=== PATIENT | female | born 1970 | race Two or more races ===

== ENCOUNTER 2018-05-27 22:08 | Emergency (ER) | payer SELFPAY ==
[~2018-05-27] VITALS: Ht 170.2 cm; Wt 72.6 kg
[2018-05-27 22:12] VITALS: BP 154/69
--- NOTE | 2018-05-27 23:48 | PHYS DOC ---
Past Medical History Past Medical History: No Pertinent History Past Surgical History: No Surgical History Alcohol Use: None Drug Use: None Adult General Chief Complaint Chief Complaint: MECHANICAL FALL HPI HPI Patient is a 47 year old female who presents with pain in her right hip and buttock after she slipped on the ice and fell just prior to arrival. The patient was in the driveway when the incident occurred. She presented directly to the emergency department. She did not try any [id number] pain medication. Activity makes the pain worse. She states nothing relieves the pain. Review of Systems Review of Systems Constitutional: Denies fever or chills [] Respiratory: Denies cough or shortness of breath [] Cardiovascular: No additional information not addressed in HPI [] GI: Denies abdominal pain, nausea, vomiting, bloody stools or diarrhea [] : Denies dysuria or hematuria [] Musculoskeletal: See history of present illness Integument: Denies rash or skin lesions [] Neurologic: Denies headache, focal weakness or sensory changes [] Endocrine: Denies polyuria or polydipsia [] All other systems were reviewed and found to be within normal limits, except as documented in this note. Current Medications Current Medications Current Medications Medications (Trade) Dose Ordered Sig/Constantine Start Time Stop Time Status Last Admin Dose Admin Ibuprofen (Motrin) 800 mg 1X ONCE 05/28/18 00:00 05/28/18 00:01 DC 05/27/18 23:54 800 MG Allergies Allergies Allergies Coded Allergies Type Severity Reaction Last Updated Verified No Known Drug Allergies 05/27/18 No Physical Exam Physical Exam Constitutional: Well developed, well nourished, no acute distress, non-toxic appearance. [] Cardiovascular:Heart rate regular rhythm, no murmur [] Lungs & Thorax: Bilateral breath sounds clear to auscultation [] Abdomen: Bowel sounds normal, soft, no tenderness, no masses, no pulsatile masses. [] Skin: Warm, dry, no erythema, no rash. [] Back: No spinal tenderness, tenderness to right hip with palpation, no CVA tenderness. [] Extremities: No tenderness, no cyanosis, no clubbing, ROM intact, no edema. [] Neurologic: Alert and oriented X 3, normal motor function, normal sensory function, no focal deficits noted. [] Psychologic: Affect normal, judgement normal, mood normal. [] Current Patient Data Vital Signs Vital Signs Date Time Temp Pulse Resp B/P (MAP) Pulse Ox O2 Delivery O2 Flow Rate FiO2 05/27/18 22:12 97.6 74 18 154/69 (97) 100 Room Air 97.6 EKG EKG [] Radiology/Procedures Radiology/Procedures []PATIENT: CORY HALLUNT: [id number]#: [id number] : 1970 LOCATION: ER AGE: 47 SEX: F EXAM STATUS: REG ER ORD. PHYSICIAN: LEFTY BOLTON APRN REASON: fell just prior to arrival on ice PROCEDURE: HIP RIGHT 2V WITH PELVIS Right hip with one view pelvis. HISTORY: Fell Single view was taken of the pelvis. There is moderate stool in the colon. Pelvis is intact without acute fracture. AP and lateral views of the right hip show no acute fracture IMPRESSION: 1. No fracture noted in the pelvis or right hip. Electronically signed by: Kyle Tomlinson MD (05/27/2018 11:49 PM) [facility] DICTATED and SIGNED BY: KYLE TOMLINSON MD DATE: 05/27/18 2348 Course & Med Decision Making Course & Med Decision Making Pertinent Labs and Imaging studies reviewed. (See chart for details) [] Dragon Disclaimer Dragon Disclaimer This electronic medical record was generated, in whole or in part, using a voice recognition dictation system. Departure Departure Impression: Primary Impression: Contusion Disposition: HOME, SELF-CARE Condition: STABLE Referrals: NO PCP (PCP) Patient Instructions: Contusion Additional Instructions: You may take ibuprofen or Tylenol for pain. Use ice packs or a heating pad or comfort. Follow-up with your primary care provider in 3 days if not improving for possible referral to orthopedics. LEFTY BOLTON APRN May 27, 2018 23:48
--- NOTE | 2018-05-27 23:53 | RAD ---
Right hip with one view pelvis. HISTORY: Fell Single view was taken of the pelvis. There is moderate stool in the colon. Pelvis is intact without acute fracture. AP and lateral views of the right hip show no acute fracture IMPRESSION: 1. No fracture noted in the pelvis or right hip. Electronically signed by: Kyle Rodriguez MD (05/27/2018 11:49 PM) [facility]
[2018-05-28] MEDS ORDERED: IBUPROFEN 400 MG TABLET. PO ONE
== END 2018-05-27 23:50 | disposition home or self-care (01) ==
LOC: ER 22:08
DX: S70.01XA Contusion of right hip, initial encounter (principal); M54.5 Low back pain; W00.2XXA Other fall from one level to another due to ice and snow, initial encounter; Y93.89 Activity, other specified; Y92.89 Other specified places as the place of occurrence of the external cause; Y99.8 Other external cause status
CPT/HCPCS: 73502; 99283